=== PATIENT | female | born 1985 | race Caucasian/White ===

== ENCOUNTER 2018-05-19 18:27 | Emergency (ER) | payer SELFPAY ==
[~2018-05-19] VITALS: Ht 157.5 cm; Wt 68.2 kg
[~2018-05-19 18:27] MED LIST: AMOXICILLIN 50500 MG PO; MACROBID 1100 MG/CAP PO; MOTRIN 600600 MG/TAB PO; NO HOME MEDICATIONS; PERCOCET 325 MG1 TA2 PO; PRENATAL1 TA1 PO; PROVENTIL0.09 MG/A1 IH
[2018-05-19 18:30] VITALS: BP 131/70; TEMP 97
[2018-05-19] MEDS ORDERED: AMOXICILLIN 8751 TAB PO (18:39)
[2018-05-19 20:04] VITALS: PULSE 79
== END 2018-05-19 20:09 | disposition home or self-care (01) ==
LOC: COL.ER 18:27
DX: S02.5XXA Fracture of tooth (traumatic), initial encounter for closed fracture (principal); X58.XXXA Exposure to other specified factors, initial encounter

== ENCOUNTER 2018-09-11 17:30 | Emergency (ER) | payer SELFPAY ==
[~2018-09-11] VITALS: Ht 157.5 cm; Wt 68.2 kg
[~2018-09-11 17:30] MED LIST changes: +AMOXICILLIN 8751 TAB PO
[2018-09-11 17:33] VITALS: BP 127/80; TEMP 98.5
[2018-09-11] MEDS ORDERED: FLEXERIL 1010 MG/TAB PO (17:54)
[2018-09-11] MEDS ORDERED: PREDNISONE20 MG PO (17:54)
[2018-09-11 18:06] VITALS: PULSE 83
== END 2018-09-11 18:06 | disposition home or self-care (01) ==
LOC: COL.ER 17:30
DX: M54.42 Lumbago with sciatica, left side (principal); Z98.890 Other specified postprocedural states
CPT/HCPCS: J7512

== ENCOUNTER 2019-06-29 07:10 | Emergency (ER) | payer SELFPAY ==
[~2019-06-29] VITALS: Ht 157.5 cm; Wt 72.7 kg
[~2019-06-29 07:10] MED LIST changes: +FLEXERIL 1010 MG/TAB PO; +PREDNISONE20 MG PO
[2019-06-29 07:25] VITALS: TEMP 97.5
[2019-06-29] MEDS ORDERED: NORCO 325 MG-51 TAB PO (08:19)
[2019-06-29] MEDS ORDERED: AMOXICILLIN 50500 MG PO (08:19)
[2019-06-29 08:32] VITALS: BP 125/80; PULSE 100
== END 2019-06-29 08:27 | disposition home or self-care (01) ==
LOC: COL.ER 07:10
DX: K02.9 Dental caries, unspecified (principal); F17.210 Nicotine dependence, cigarettes, uncomplicated

== ENCOUNTER 2020-08-03 12:01 | Emergency (ER) | payer MEDICAID ==
[~2020-08-03] VITALS: Ht 154.9 cm; Wt 81.8 kg
[~2020-08-03 12:01] MED LIST changes: +NORCO 325 MG-51 TAB PO
[2020-08-03 12:26] VITALS: TEMP 97.3
[2020-08-03] MEDS ORDERED: PEN-VEE K500 MG PO (13:04)
[2020-08-03 13:15] VITALS: BP 129/91; PULSE 81
== END 2020-08-03 13:15 | disposition home or self-care (01) ==
LOC: COL.ER 12:01
DX: K08.89 Other specified disorders of teeth and supporting structures (principal); F17.210 Nicotine dependence, cigarettes, uncomplicated

== ENCOUNTER 2021-01-05 08:28 | Emergency (ER) | payer MEDICAID ==
[~2021-01-05] VITALS: Ht 154.9 cm; Wt 76.4 kg
[~2021-01-05 08:28] MED LIST changes: +PEN-VEE K500 MG PO
[2021-01-05 09:29] VITALS: TEMP 98.1
[2021-01-05] MEDS ORDERED: AMOXICILLIN875 MG PO (11:26)
--- NOTE | 2021-01-05 11:34 | NUR ---
Pt seen in ED with tooth pain and reports no OB concerns. Pt reports [facility] 02/15/21 pt of Anastasi[facility]. Pt denies any contractions, leaking of fluid or vaginal bleeding and reports normal movement.
--- NOTE | 2021-01-05 11:49 | NUR ---
FHR tracing done. See intervention for details. Occasional contractions noted but pt denies any pain with contractions. FHR tracing strip placed on ED chart.
[2021-01-05 12:05] VITALS: BP 120/61; PULSE 80
== END 2021-01-05 12:10 | disposition home or self-care (01) ==
LOC: COL.ER 08:28
DX: O99.619 Diseases of the digestive system complicating pregnancy, unspecified trimester (principal); K04.7 Periapical abscess without sinus; O99.330 Smoking (tobacco) complicating pregnancy, unspecified trimester; F17.210 Nicotine dependence, cigarettes, uncomplicated; Z3A.00 Weeks of gestation of pregnancy not specified

== ENCOUNTER 2021-02-09 07:55 | Inpatient (IN) | payer MEDICAID ==
[~2021-02-09] VITALS: Ht 154.9 cm; Wt 73.2 kg
[2021-02-09] VITALS (18 sets, daily range): BP systolic 94–119; BP diastolic 42–73; PULSE 69–102; TEMP 97.6–98.2
[~2021-02-09 07:55] MED LIST changes: +AMOXICILLIN875 MG PO
[2021-02-09 11:30] LABS: BASO % 0.3 % (0.0-2.0); EOS # 0.1 K/mm3 (0.0-0.7); EOS % 0.8 % (0.0-4.0); GRAN # 7.1 K/mm3 (1.4-6.5); GRAN % 73.1 % (42.2-75.2); HEMOGLOBIN 11.8 g/dl (12.5-16.0); LYMPH # 1.9 K/mm3 (1.2-3.4); LYMPH % 19.5 % (20.0-51.0); MEAN CELL VOLUME 88 fl (80.0-100.0); MEAN CORPUSCULAR HEMOGLOBIN 30 pg (27-31); MEAN CORPUSCULAR HGB CONC 34 g/dl (33.0-37.0); MEAN PLATELET VOLUME 9.6 fl (7.4-10.4); MONO # 0.5 K/mm3 (0.1-0.6); MONO % 5.5 % (1.7-9.3); PLATELET COUNT 321 K/mm3 (130-400); RED BLOOD COUNT 3.93 M/mm3 (4.10-5.30); REDCELL DISTRIBUTION WIDTH-CV 12.2 % (11.5-14.5)
[2021-02-09 11:32] LABS: HEMATOCRIT 34.6 % (37.0-47.0)
[2021-02-09 12:33] LABS: ALBUMIN 2.3 gm/dL (3.5-5.0); BILIRUBIN,TOTAL 0.8 mg/dL (0.2-1.2); CALCIUM 9.9 mg/dL (8.4-10.2); CREATININE, serum 0.79 mg/dL (0.57-1.11); POTASSIUM 3.8 mmol/L (3.5-4.5); TOTAL PROTEIN 5.9 gm/dL (6.2-8.1)
[2021-02-09 14:46] LABS: TRICYCLIC ANTIDEPRESS URINE NEGATIVE
[2021-02-10 00:26] VITALS: BP 109/61; PULSE 85; TEMP 97.8
[2021-02-10 05:13] VITALS: BP 109/58; PULSE 70; TEMP 97.8
[2021-02-10] MEDS ORDERED: IBU600 MG PO (06:33)
[2021-02-10] MEDS ORDERED: PERCOCET 325 MG1 TA2 PO (06:34)
[2021-02-10 07:15] VITALS: BP 105/66; PULSE 75; TEMP 97.8
[2021-02-10 07:32] LABS: HEMOGLOBIN 11.1 g/dl (12.5-16.0)
[2021-02-10 07:34] LABS: HEMATOCRIT 34.1 % (37.0-47.0)
--- NOTE | 2021-02-10 10:12 | NUR ---
Initial visit; Mom thanked School Bus Aide for offering congratulations and God's blessings for the of her son. School Bus Aide thanked patient for choosing [facility].
[2021-02-10 11:30] VITALS: BP 100/67; PULSE 88; TEMP 97.7
--- NOTE | 2021-02-10 13:33 | NUR ---
Ciso met with patient in response to consult for history of marijuana use. Patient had a positive UDS for marijuana on 07/27/2020 and had a negative UDS upon delivery. REZA collaborated with RNRadha who advised cord blood was not sent off for baby. Patient advised she lives in [place] with her partner, Alfonso Rene (ph#[phone]) and their son, Jonh who is six years old. Patient states Alfonso is with Jonh at this time. Patient reports she has a good support system and has family in town. Patient reports she has all supplies needed for baby at home and has no concerns at this time. Patient is using formula and plans to contact the [facility] for WIC. Patient states she also plans to contact the Department [employer] to reapply for food stamps as she has had them in the past. Patient is a stay at home mom. Patient denies any concerns for depression or anxiety. SW addressed marijuana use during . Patient states it's been "months" since she's used and stopped using once she spoke with her OB about it. Patient was negative at delivery. SW collaborated the above information to provider, Dr. Montilla. SW also made report to Child Protective Services due to marijuana use during . (CPS intake# [id number])
[2021-02-10 16:15] VITALS: BP 97/63; PULSE 100; TEMP 98
[2021-02-10 21:05] VITALS: BP 113/54; PULSE 73
[2021-02-11 05:24] VITALS: BP 117/56; PULSE 83; TEMP 97.8
[2021-02-11 07:32] VITALS: BP 119/63; PULSE 77; TEMP 97.8
[2021-02-11 07:35] VITALS: BP 119/63; PULSE 77; TEMP 97.8
--- NOTE | 2021-02-11 11:30 | NUR ---
pt called out to tell nurse that her BS at 1115 was 81.
[2021-02-11 15:25] VITALS: BP 117/66; PULSE 83; TEMP 98.3
[2021-02-11 20:40] VITALS: BP 113/57; PULSE 86; TEMP 98.5
[2021-02-12 08:30] VITALS: BP 117/68; PULSE 89; TEMP 98.1
== END 2021-02-12 12:10 | disposition home or self-care (01) | DRG 788 ==
LOC: OB 07:55
PROVIDERS: ADMIT Obstetrics & Gynecology
PROC: 10D00Z1 Extraction of Products of Conception, Low, Open Approach (ICD-10-PCS; principal; 2021-02-09)
DX: O34.211 Maternal care for low transverse scar from previous cesarean delivery (principal); Z37.0 Single live birth; O24.429 Gestational diabetes mellitus in childbirth, unspecified control; O99.52 Diseases of the respiratory system complicating childbirth; J45.909 Unspecified asthma, uncomplicated; Z3A.39 39 weeks gestation of pregnancy
CPT/HCPCS: J0171; J0690; J1885; J2175; J2370; J2405; J2590; J7120

== ENCOUNTER 2022-07-07 08:43 | Emergency (ER) | payer MEDICAID ==
[~2022-07-07] VITALS: Ht 154.9 cm; Wt 70.5 kg
[~2022-07-07 08:43] MED LIST changes: +IBU600 MG PO
[2022-07-07 08:47] VITALS: BP 143/68; PULSE 103; TEMP 98.1
[2022-07-07 09:37] LABS: STREP SCREEN POSITIVE
[2022-07-07] MEDS ORDERED: PEN-VEE K500 MG PO (09:47)
== END 2022-07-07 09:52 | disposition home or self-care (01) ==
LOC: COL.ER 08:43
PROVIDERS: Emergency Medicine
DX: J02.0 Streptococcal pharyngitis (principal); B95.0 Streptococcus, group A, as the cause of diseases classified elsewhere; Z28.310 Unvaccinated for COVID-19
CPT/HCPCS: J8540

== ENCOUNTER 2023-02-08 17:58 | Emergency (ER) | payer MEDICAID ==
[~2023-02-08] VITALS: Ht 154.9 cm; Wt 68.2 kg
[2023-02-08 18:06] VITALS: TEMP 98.3
[2023-02-08] MEDS ORDERED: CEPHALEXIN500 M1 PO (18:38)
[2023-02-08 18:50] VITALS: BP 128/70; PULSE 76
== END 2023-02-08 18:59 | disposition home or self-care (01) ==
LOC: COL.ER 17:58
DX: K02.9 Dental caries, unspecified (principal); R59.1 Generalized enlarged lymph nodes